=== PATIENT | female | born 1975 | race Caucasian/White ===

== ENCOUNTER → 2018-12-01 | Outpatient (CLI) | payer OTHER ==
[~2018-12-01] MED LIST: AMOXICILLIN500 MG PO; MOTRIN800 MG PO; NKHM; NORCO 325 MG-51 TAB PO; PRILOSEC40 MG PO
== END | disposition home or self-care (01) ==
LOC: LAB 16:18
DX: E55.9 Vitamin D deficiency, unspecified (principal)

== ENCOUNTER → 2022-03-20 | Outpatient (CLI) | payer OTHER | END | disposition home or self-care (01) | LOC: MAMMO 13:51 | PROVIDERS: ATTEND Nurse Practitioner Women's Health | DX: Z12.31 Encounter for screening mammogram for malignant neoplasm of breast (principal) ==

== ENCOUNTER → 2023-12-04 | Outpatient (CLI) | payer OTHER ==
[2023-12-04 14:51] LABS: ALKALINE PHOSPHATASE 96 U/L (46-116); BUN 8 mg/dl (9-23); CHLORIDE 106 mmol/L (98-107); POTASSIUM 4.2 mmol/L (3.4-5.1); SGPT/ALT 26 U/L (5-49); TOTAL PROTEIN 7.6 gm/dL (6.0-8.0)
== END | disposition home or self-care (01) ==
LOC: LAB 14:13
PROVIDERS: ATTEND Nurse Practitioner Women's Health
DX: R61 Generalized hyperhidrosis (principal); N95.1 Menopausal and female climacteric states

== ENCOUNTER → 2024-05-05 | Outpatient (CLI) | payer OTHER ==
[2024-05-05 14:40] LABS: ALKALINE PHOSPHATASE 95 U/L (46-116); BUN 12 mg/dl (9-23); CHLORIDE 104 mmol/L (98-107); SGPT/ALT 20 U/L (5-49); TOTAL PROTEIN 6.9 gm/dL (6.0-8.0)
== END | disposition home or self-care (01) ==
LOC: LAB 13:39
PROVIDERS: ATTEND Nurse Practitioner Women's Health
DX: R23.2 Flushing (principal)

== ENCOUNTER → 2025-02-03 | Outpatient (CLI) | payer OTHER | END | disposition home or self-care (01) | LOC: MAMMO 08:54 | PROVIDERS: ATTEND Nurse Practitioner Women's Health | DX: R92.323 Mammographic fibroglandular density, bilateral breasts (principal); N64.4 Mastodynia ==